=== PATIENT | male | born 1995 | race Caucasian/White ===

== ENCOUNTER 2019-10-30 18:05 | Emergency (ER) | payer SELFPAY ==
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
[2019-10-30] MEDS ORDERED: KEFZOL 1 GM/50 ML PREMIX** 50 ML IV ONE ×2 (18:37→19:27)
[2019-10-30] MEDS ORDERED: Sodium Chloride 0.9% 1000 ML 1,000 ML IV STA (18:38)
[2019-10-30] MEDS ORDERED: Zofran 4 MG/2 ML VIAL IV STA (18:38)
[2019-10-30] MEDS ORDERED: Hydromorphone 1 mg/ml Ampule IV ONE ×3 (18:40→21:18)
[2019-10-30] MEDS ORDERED: Adacel Vial IM ONE ×2 (18:46→18:54)
[2019-10-30] MEDS ORDERED: Zofran 4 MG/2 ML VIAL ONE (18:47)
[2019-10-30] MEDS ORDERED: Sodium Chloride 0.9% 1000 ML 1,000 ML ONE (18:47)
[2019-10-30] MEDS ORDERED: Hydromorphone 1 mg/ml Ampule ONE ×3 (18:47→21:25)
[2019-10-30 19:06] LABS: Absolute Neutrophil Ct (ANC) 8.41 (1.4-6.9); BASOPHIL % 0.1 % (0.0-0.4); Basophil (Absolute #) 0.01 (0-0.4); Eosinophil % 0.5 % (0.00-5.0); Eosinophil (Absolute #) 0.06 (0-0.5); Hematocrit 38.7 % (42-50); Hemoglobin 12.7 gm/dl (12.5-18.0); Lymphocyte (Absolute #) 1.82 (1.0-4.6); Mean Cell Volume 91.5 fl (78-100); Mean Corpuscular Hgb Concent. 32.8 g/dl (32-36); Monocyte (Absolute #) 1.04 (0.0-1.3); Monocytes % 9.2 % (0.0-12.0); Neutrophil % 74.2 % (36.0-66.0); Platelet Count 172 K/mm3 (150-450); Red Blood Count 4.23 M/mm3 (4.1-5.6); Red Cell Distribution Width 12.8 % (11.5-14.0); White Blood Count 11.3 K/mm3 (4.0-10.5)
[2019-10-30 19:16] LABS: ALBUMIN 4.1 g/dL (3.5-5.0); ALKALINE PHOSPHATASE 76 U/L (38-126); ANION GAP 11.2 MEQ/L (5-15); BLOOD UREA NITROGEN 18 mg/dL (9-20); CHLORIDE 103 mmol/L (98-107); Calcium 8.4 mg/dL (8.4-10.2); Carbon Dioxide 30 mmol/L (22-30); Creatinine 1 0.69 mg/dL (0.66-1.25); Glucose 108 mg/dL (74-106); SGOT/AST 48 U/L (17-59); SGPT/ALT 44 U/L (0-50); SODIUM 140 mmol/L (137-145); Total Protein 7.1 g/dL (6.3-8.2)
[2019-10-30] MEDS ORDERED: KEFZOL 1 GM/50 ML PREMIX** 1 GM/50 ML IVPB IV STA (19:28)
[2019-10-30] MEDS ORDERED: KEFZOL 1 GM/50 ML PREMIX** 1 GM/50 ML IVPB IV ONE (19:32)
[2019-10-30] MEDS ORDERED: KEFLEX 500 MG PO ONE (20:26)
[2019-10-30] MEDS ORDERED: PERCOCET TABLET 5/325MG PO STA (20:27)
[2019-10-30] MEDS ORDERED: KEFLEX 500 MG ONE (20:35)
[2019-10-30] MEDS ORDERED: Bactroban OINTMENT TP ONE (20:35)
[2019-10-30] MEDS ORDERED: PERCOCET TABLET 5/325MG ONE (20:36)
[2019-10-30 22:25] VITALS: BP 134/76; PULSE 82; O2SAT 98
== END 2019-10-30 21:37 | disposition home or self-care (01) ==
LOC: ED 18:05
DX: T25.222A Burn of second degree of left foot, initial encounter (principal); T25.221A Burn of second degree of right foot, initial encounter; M79.89 Other specified soft tissue disorders; X08.8XXA Exposure to other specified smoke, fire and flames, initial encounter; Y93.89 Activity, other specified; Y92.9 Unspecified place or not applicable; Z77.29 Contact with and (suspected) exposure to other hazardous substances; T25.622A Corrosion of second degree of left foot, initial encounter; T25.621A Corrosion of second degree of right foot, initial encounter; Y92.89 Other specified places as the place of occurrence of the external cause
CPT/HCPCS: 36000; 36415; 80053; 83605; 85025; 87040; 90471; 90715; 96365; 96374; 96375; 96376; 99284; J0690; J1170; J2405; A9270-GY